=== PATIENT | female | born 1990 | race Caucasian/White ===

== ENCOUNTER 2018-12-03 22:10 | Emergency (ER) | payer BC ==
[2018-12-03 22:16] VITALS: RESP 16; TEMP 97.8; O2SAT 98
[2018-12-03] MEDS ORDERED: PREDNISONE 20 MG TAB PO ONE (22:27)
[2018-12-03] MEDS ORDERED: DIPHENHYDRAMINE 50 MG/ML SOL IM ONE (22:27)
[2018-12-03] MEDS ORDERED: DIPHENHYDRAMINE 50 MG/ML SOL ONE (22:27)
[2018-12-03] MEDS ORDERED: PREDNISONE 20 MG TAB ONE (22:29)
[2018-12-03 23:11] VITALS: BP 101/59; PULSE 58
== END 2018-12-03 23:05 | disposition home or self-care (01) ==
LOC: ED 22:10
DX: T36.0X5A Adverse effect of penicillins, initial encounter (principal); L50.9 Urticaria, unspecified
CPT/HCPCS: 96372; 99283; J1200; A9270-GY